=== PATIENT | female | born 1995 | race Caucasian/White ===

== ENCOUNTER 2018-01-21 23:33 | Emergency (ER) | payer MEDICAID, OTHER ==
[2018-01-22] MEDS: DIPHENHYDRAMINE 25 MG CAP PO (01:22)
[2018-01-22] MEDS: METHYLPREDNISOLONE 125 MG INJ IM (01:22)
[2018-01-22] MEDS: FAMOTIDINE 20 MG TAB PO (01:22)
== END 2018-01-22 01:50 | disposition home or self-care (01) ==
LOC: FTE 23:33
DX: R21 Rash and other nonspecific skin eruption (principal)
CPT/HCPCS: 96372; 99284-25; J2930